=== PATIENT | female | born 1940 | race Caucasian/White ===

== ENCOUNTER 2020-02-26 06:35 | Day surgery (SDC) | payer MEDICARE, OTHER ==
[~2020-02-26] VITALS: Ht 165.1 cm; Wt 105.2 kg
[~2020-02-26 06:35] MED LIST: LEVSOD75 PO; ZOCOR20 MG PO
--- NOTE | 2020-02-26 17:07 | NUR ---
PT PREVIOUSLY HAD SOME DIZZINESS AND NAUSEA WHEN WORKING WITH THERAPY. PT GIVEN CRACKERS PER PT REQ, DENIED WANTING NAUSEA MEDICATION. PT GIVEN CRACKER AND TYLENOL. PT PUT HOB DOWN AFTER HAVING CRACKERS. PT REPORTS FEELING BETTER NOW. PT CAN ALSO MOVE LEG MUCH BETTER.
--- NOTE | 2020-02-27 03:33 | NUR ---
SHIFT SUMMARY POD 1 RIGHT TKA, RACHELLE WRAP APPEARS CDI W/POLAR PACK IN PLACE. PT A/OX4 WITH VSS. PAIN MANAGED WITH PO MEDICATIONS. IS AMBULATING IN ROOM/HALLWAY WITH SBA/FWW/GB. UP IN CHAIR. CHRISTIANA PO INTAKE, DENIES N/V. PLAN TO WORK WITH THERAPY AND POSSIBLE D/C TOMORROW. WILL CONT TO MONITOR AND GIVE REPORT TO ONCOMING RN.
[2020-02-27 04:26] LABS: BASOPHILS ABSOLUTE AUTO 0.01 K/mm3 (0.00-0.23); BASOPHILS PERCENT AUTO 0 % (0-2); EOSINOPHILS PERCENT AUTO 0 % (0-6); Hematocrit 42.1 % (33.0-51.0); Hemoglobin 13.7 g/dL (11.5-16.0); IMMATURE GRAN ABSOLUTE AUTO 0.06 K/mm3 (0.00-0.10); IMMATURE GRAN PERCENT AUTO 1 % (0-1); LYMPHOCYTES ABSOLUTE AUTO 1.13 K/mm3 (0.84-5.20); LYMPHOCYTES PERCENT AUTO 9 % (21-46); MONOCYTES ABSOLUTE AUTO 0.62 K/mm3 (0.16-1.47); MONOCYTES PERCENT AUTO 5 % (4-13); Mean Corpuscular HGB 29.6 pg (26.0-34.0); Mean Corpuscular HGB Conc 32.5 g/dL (31.5-36.5); Mean Corpuscular Volume 91 fL (80-100); Mean Platelet Volume 10.4 fL (9.1-12.4); NEUTROPHILS ABSOLUTE AUTO 10.38 K/mm3 (1.96-9.15); NEUTROPHILS PERCENT AUTO 85 % (41-73); Platelet Count 195 K/mm3 (150-400); RDW Standard Deviation 42.3 fL (35.1-46.3); Red Blood Cell Count 4.63 M/mm3 (3.80-5.20)
[2020-02-27 04:43] LABS: Anion Gap 6 mmol/L (6-16); Blood Urea Nitrogen 10 mg/dL (8-24); Bun/Creatinine Ratio 11.7 (12.0-20.0); CO2, Blood 25 mmol/L (21-32); Calcium, Blood 8.3 mg/dL (8.5-10.1); Chloride, Blood 110 mmol/L (98-108); Creatinine, Blood 0.85 mg/dL (0.40-1.00); Glomerular Filtration Rate >60 (60-); Glucose, Blood 118 mg/dL (70-99); Potassium, Blood 4.1 mmol/L (3.5-5.5); Sodium, Blood 141 mmol/L (136-145)
[2020-02-27] MEDS ORDERED: ASPI81CH PO (08:57)
[2020-02-27] MEDS ORDERED: Percocet 5-3251 EACH PO (08:57)
--- NOTE | 2020-02-27 18:34 | NUR ---
181 DISCHARGED TO HOME WITH . PT REPORTS PAIN IS WELL CONNTROLLED AT 2/10. PT AMBULATING WITH WALKER AND STANDBY ASSIST. PT CHRISTIANA PO FOOD AND FLUIDS WITHOUT NAUSEA. VOIDING CLEAR YELLOW URINE. RIGHT KNEE DRESSING CLEAN, DRY AND INTACT
== END 2020-02-27 18:29 | disposition home or self-care (01) ==
LOC: ORSCMMR 06:35 → ORD 08:15 → ORSCMMR 08:15 → ORD 09:45 → SURS 11:46 → ORD 12:15 → ORSCMMR 02-27 18:29
PROVIDERS: Orthopaedic Surgery
PROC: 8E0Y0CZ Robotic Assisted Procedure of Lower Extremity, Open Approach (ICD-10-PCS; principal; 2020-02-26 08:30)
PROC: 0SRC0JA Replacement of Right Knee Joint with Synthetic Substitute, Uncemented, Open Approach (ICD-10-PCS; principal; 2020-02-26 08:30)
DX: M17.11 Unilateral primary osteoarthritis, right knee (principal); G47.33 Obstructive sleep apnea (adult) (pediatric); K21.9 Gastro-esophageal reflux disease without esophagitis; E03.9 Hypothyroidism, unspecified; E66.01 Morbid (severe) obesity due to excess calories; Z68.38 Body mass index [BMI] 38.0-38.9, adult; Z79.899 Other long term (current) drug therapy
CPT/HCPCS: 27447; S2900; 36415; 73560-RT; 80048; 85025; 88300; 97110; 97116; 97162; 97530; C1776; J0171; J0690; J0735; J1100; J1885; J2250; J2370; J2405; J2704; J2795; J3010; J7120